=== PATIENT | female | born 1960 | race Caucasian/White ===

== ENCOUNTER → 2016-03-18 | Outpatient (CLI) | payer OTHER ==
[~2016-03-18] MED LIST: ASPEC81 PO; FLEXAMIN PO; GABA-113 PO; IBUP600T44 PO; KETO10TA PO; MULT-506 PO; NAPR1TAB9 PO; PHYTOESTROGEN PO; T4/T3 PO; TRAM-10 PO; [UNRECOGNIZED DRUG - MIXTURE] PO
[2016-03-18 13:46] LABS: THYROID STIMULATING HORMONE 2.39 uIu/ml (0.300-4.500)
== END | disposition home or self-care (01) ==
LOC: C.LABBC 09:22
DX: E03.9 Hypothyroidism, unspecified (principal)

== ENCOUNTER → 2016-10-25 | Outpatient (CLI) | payer OTHER ==
--- NOTE | 2016-10-26 07:55 | MAMMOGRAPHY REPORT ---
BILATERAL DIGITAL SCREENING MAMMOGRAM TOMOSYNTHESIS WITH CAD: 10/25/2016 CLINICAL HISTORY: Routine screening. Patient has no complaints. TECHNIQUE: Breast tomosynthesis in addition to standard 2D mammography was performed. Current study was also evaluated with a Computer Aided Detection (CAD) system. COMPARISON: Comparison is made to exams dated: 10/06/2015 mammogram, 10/01/2014 mammogram, 09/30/2013 mamm ogram, 09/27/2012 mammogram, and 09/27/2011 mammogram - [facility]. BREAST COMPOSITION: The tissue of both breasts is heterogeneously dense, which may obscure small mas ses. FINDINGS: There are scattered bilateral benign-appearing coarse, round and punctate microcalcificatio ns. No suspicious mass, architectural distortion or cluster of new, suspicious microcalcifications i s seen. IMPRESSION: ACR BI-RADS CATEGORY 1: NEGATIVE There is no mammographic evidence of malignancy. A 1 year screening mammogram is recommended. The pa tient will receive written notification of the results. Approximately 10% of breast cancers are not detected with mammography. A negative mammographic report should not delay biopsy if a clinically suggestive mass is present. Marilynn Lopez M.D. ay/:10/25/2016 16:58:18 Director Of Quality Control: Candace AYERS(R)(M), [facility] letter sent: Normal 1/2 BI-RADS Code: ACR BI-RADS Category 1: Negative
== END | disposition home or self-care (01) ==
LOC: C.MAMM 14:00
PROVIDERS: ATTEND Nurse Practitioner
DX: Z12.31 Encounter for screening mammogram for malignant neoplasm of breast (principal)

== ENCOUNTER → 2016-11-09 | Outpatient (CLI) | payer OTHER ==
[2016-11-09 13:28] LABS: BASO % 0.5 %; BASO ABS # 0.04 K/uL (0-0.2); COMPLETE YES; EOS % 1.9 %; HEMATOCRIT 41.2 % (37-47); IG% 0.1 %; LYMPH % 38.6 %; MEAN CELL VOLUME 93.4 fL (80-100); MEAN CORPUSCULAR HEMOGLOBIN 29.9 pg (25-34); MEAN PLATELET VOLUME 9.5 fL (7.4-10.4); MONO % 8.2 %; NEUT % 50.7 %; PLATELET COUNT 323 K/uL (130-400); RED BLOOD COUNT 4.41 M/uL (4.2-5.4); WHITE BLOOD COUNT 8.04 K/uL (4.8-10.8)
[2016-11-09 13:50] LABS: BLOOD UREA NITROGEN 18 mg/dl (7-18); BUN/CREATININE RATIO 20.9 (10-20); CALCIUM 9.2 mg/dl (8.5-10.1); CARBON DIOXIDE 30 mmol/L (21-32); CHLORIDE 105 mmol/L (98-107); CREATININE 0.85 mg/dl (0.60-1.20); GLUCOSE 94 mg/dl (70-99); POTASSIUM 4.3 mmol/L (3.5-5.1); SODIUM 139 mmol/L (136-145)
== END | disposition home or self-care (01) ==
LOC: C.LABBC 09:31
PROVIDERS: ATTEND Orthopaedic Surgery
DX: M25.512 Pain in left shoulder (principal)

== ENCOUNTER → 2016-11-17 | Day surgery (SDC) | payer OTHER ==
[2016-11-14 11:43] VITALS: Ht 158.8 cm; Wt 72.7 kg
[~2016-11-17] VITALS: Ht 158.8 cm; Wt 72.7 kg
[~2016-11-17] MED LIST changes: +ATROPINE SULFATE 0.1 MG/ML 5ML SYR IV PRN; +BUPIVACAINE/EPINEPHRINE 0.25% 1:200,000 30 ML VIAL ONE; +DEXAMETHASONE SOD INJ 4 MG/ML VIAL ONE; +EpHEDrine SULFATE INJ 50 MG/ML AMP IV PRN; +EpHEDrine SULFATE INJ 50 MG/ML AMP ONE; +EpINEphrine INJ 1MG/ML AMP 1 MG/ML AMP ONE; +FENTANYL CITRATE INJ 50 MCG/1 ML 2 ML VIAL IV PRN; +FENTANYL CITRATE INJ 50 MCG/1 ML 2 ML VIAL ONE; -FLEXAMIN PO; +LACTATED RINGER'S 1000ML 1,000 ML IV SCH; +LIDOCAINE HCL 2% 2 ML VIAL (20MG/ML) ONE; +MIDAZOLAM HCL 1 MG/ML 2ML VIAL ONE; +ONDANSETRON INJ 2 MG/ML 2 ML VIAL IV PRN; +ONDANSETRON INJ 2 MG/ML 2 ML VIAL ONE; +PROPOFOL IV EMULSION 10 MG/ML 20 ML VIAL IV ONE; +ROPIVACAINE 0.5% 5 MG/ML 30 ML VIAL ONE; +SODIUM CHLORIDE 0.9% 1000ML 1,000 ML IV SCH; +TRAMADOL HCL 50 MG TAB PO PRN; -[UNRECOGNIZED DRUG - MIXTURE] PO
--- NOTE | 2016-11-17 06:51 | History & Physical Bridge - [place] ---
H&P Re-Evaluation Bridge Note: I have examined the patient, reviewed the History & Physical and in the interval since the performance of the History & Physical I have noted the following changes of clinical significance: No changes noted
[2016-11-17] MEDS: CEFAZOLIN 1000MG/55 ML D5W IV SCH ×2 (09:17→09:23)
--- NOTE | 2016-11-17 10:41 | Discharge Instructions-SurgCtr ---
Discharge Instructions Date of Service Nov 17, 2016. Visit Reason for Visit: Left Shoulder Full Thickness Rotator Cuff Tear Discharge Discharge Diagnosis / Problem: SAME ABOVE Discharge Goals Goal(s): Decrease discomfort, Improve function Medications Stopped Medications Name(s): ALEVE STOPPED 1 WEEK AGO Restart Stopped Medication(s): MAY RESTART WHEN FINISHED WITH TORADOL Activity Recommendations Activity Limitations: as noted below Lifting Limitations: until after follow-up appointment Exercise/Sports Limitations: until after follow-up appointment Shower/Bathe: tomorrow Anesthesia . Post Anesthesia Instructions: If you have had General Anesthesia or IV Sedation: * Do not drive today. * Resume driving when surgeon permits. * Do not make important decisions or sign legal documents today. * Call surgeon for: 1. Temperature elevations greater than 101 degrees F. 2. Uncontrollable pain. 3. Excessive bleeding. 4. Persistent nausea and vomiting. 5. Medication intolerance (nausea, vomiting or rash). * For nausea and vomiting use only clear liquids such as: tea, soda, bouillon until nausea subsides, then gradually increase diet as tolerated. * If you have any concerns or questions, call your surgeon's office. If physician is unavailable and it is an emergency, call 911 or go to the nearest emergency room. . Instructions / Follow-Up Instructions / Follow-Up MEDICATIONS: * Resume previous medications unless instructed otherwise by your surgeon. * Always take pain medication on a full stomach or with food to avoid upset stomach. * Do not drink alcohol or drive while taking narcotics. * Ibuprofen or Tylenol may be taken if narcotic not needed. SPECIAL CARE INSTRUCTIONS: __ None _X_ Keep extremity elevated and iced x 48 hours; apply ice 20-30 minutes 8-10 times/day. May remove at night. __ Sling __24 hrs/day __ Remove at night _X_ Shoulder Immobilizer (MAY REMOVE AFTER 48 HOURS ONLY TO SHOWER AND FOR THERAPY) _X_ 24 hrs/day __ Remove at night _X_ Dressing __ Maintain until seen in office, may shower with plastic over site _X_ Remove dressings in 24-48 hours and then may shower _X_ Cover incisions with band-aids after showering __ Do not remove steri-strips Call physician if chills or temperature rises above 102 degrees or pain unrelieved by prescribed pain medications at . . Diet Recommendations Home Diet: no limitations Fluid Restriction: None Procedures Procedures Performed: Left Shoulder Arthroscopy, Medium Rotator Cuff Repair, Acromioplasty, Biceps Tenodesis Pending Studies Studies pending at discharge: no Work Instructions Return To Work: after follow-up Lifting Limitations: NO LIFTING WITH LEFT ARM Medical Emergencies . Who to Call and When: Medical Emergencies: If at any time you feel your situation is an emergency, please call 911 immediately. . Non-Emergent Contact Non-Emergency issues call your: Primary Care Provider Call Non-Emergent contact if: you have a fever, temperature is above 101.5 . . "Provider Documentation" section prepared by Oliverio Maldonado. .
--- NOTE | 2016-11-17 10:46 | [facility] Post Operative Brief Note ---
Immediate Operative Summary Operative Date Nov 17, 2016. Pre-Operative Diagnosis Left Shoulder Full Thickness Rotator Cuff Tear Post-Operative Diagnosis Same Procedure(s) Performed Left Shoulder Arthroscopy, Medium Rotator Cuff Repair, Acromioplasty, Biceps Tenodesis Surgeon Dr. Mendez [employer] Specialist Surgeon(s) Deepak Maldonado PA-C Estimated Blood Loss 5ml Findings as above Specimens None Complication(s) None Disposition Recovery Room / PACU
--- NOTE | 2016-11-17 11:07 | OPERATIVE REPORT ---
DATE OF OPERATION: 11/17/2016 PREOPERATIVE DIAGNOSIS: Severe external impingement, medium sized rotator cuff tear of the left shoulder. POSTOPERATIVE DIAGNOSIS: Same. PROCEDURE: Left shoulder diagnostic arthroscopy with limited debridement, acromioplasty, medium-sized rotator cuff repair and arthroscopic biceps tenodesis. SURGEON: Dr. Elio Mendez. MEDICAL TECHNOLOGIST CHIEF: Joey Maldonado PA-C, whose assistance was necessary for positioning the arm and helping with instrumentation. ANESTHESIA: General with a left interscalene nerve block. COMPLICATIONS: None. CONDITION: Stable to PACU. INDICATIONS: Kina is a pleasant 56-year-old female who had been complaining of chronic left shoulder pain. MRI and clinical examination were diagnostic for severe external impingement with medium-sized rotator cuff tear. After failing conservative treatment, she elected to undergo arthroscopy. DESCRIPTION OF PROCEDURE: On 11/17/2016, she arrived at [facility] for the above procedure. She was seen in the preoperative holding area and the operative extremity was identified and signed. She was given a preoperative antibiotic and a left interscalene nerve block. She was taken back to the operating room, laid on the table in supine position and put under general anesthesia. She was then put into the beachchair position. The left shoulder was prepped and draped in sterile fashion. Time-out was done and the patient and operative extremity was properly identified. A scope was introduced in the posterior portal. Diagnostic arthroscopy showed no cartilage damage to the humeral head or the glenoid. There was some fraying of the anterior labrum. The biceps tendon showed a little bit of fraying on the anterior aspect. There was a tear involving the entire supraspinatus which went into the biceps ham mechanism. The infraspinatus, teres minor and subscapularis were checked and intact. An anterior portal was made. A shaver was used to do a limited debridement of the intraarticular structures and the biceps tendon was arthroscopically tenotomized. The scope was then put into the subacromial space. A lateral portal was made. A shaver was used to do a complete subacromial and subdeltoid bursectomy. An ablator was used to tease the coracoacromial ligament off the undersurface of the acromion and a 5-0 juice was used to complete an acromioplasty of a large Bigliani type 3 acromion. A shaver was used to remove any excess debris and attention was turned to the rotator cuff. An additional anterolateral portal was made and Luana cannulas were placed in each of the lateral portals. The greater tuberosity was prepared with a ring curette and a microfracture. The rotator cuff was then fixed with an Arthrex SpeedBridge configuration using 4.5 mm BioComposite SwiveLock suture anchors loaded with fiber tapes. This gave good nice knotless SpeedBridge repair. Multiple pictures were taken. To note, the biceps tendon was tagged with an Arthrex FiberLink suture and incorporated into the anterior medial anchor. This completed an arthroscopic biceps tenodesis. Multiple pictures were taken. The scope was placed back into the glenohumeral joint. The biceps tendon was resected and debrided back to stable margins. The articular side of the rotator cuff had been restored and pictures were taken. Arthroscopic instruments were removed from the shoulder. Portal sites were closed with 3-0 nylon. She was then placed in a soft dressing and a left arm abduction sling. She was then extubated, transferred to a litter and taken to the postanesthesia care unit in stable condition. She tolerated the procedure well. I attest to the content of the Intraoperative Record and any orders documented therein. Any exception s are noted below.
[2016-11-17 11:41] VITALS: BP 133/83; PULSE 73; TEMP 36.6; O2SAT 97
--- NOTE | 2016-11-17 12:01 | Anesthesiology Progress Note ---
Anesthesia Post Op Note Date & Time Nov 17, 2016 at 12:00 Vital Signs Pain Intensity: 0 Vital Signs Past 12 Hours Date Time Temp Pulse Resp B/P (MAP) Pulse Ox O2 Delivery O2 Flow Rate FiO2 11/17/16 11:41 36.6 73 133/83 (100) 97 Room Air 11/17/16 11:15 70 18 100 11/17/16 11:15 70 18 11/17/16 11:13 36.7 75 20 157/83 100 Room Air 11/17/16 11:11 157/83 11/17/16 11:10 70 19 11/17/16 11:10 70 19 100 11/17/16 11:06 155/79 11/17/16 11:05 73 27 11/17/16 11:05 74 27 100 11/17/16 11:03 163/81 11/17/16 11:01 151/102 11/17/16 11:00 70 16 11/17/16 11:00 71 16 100 11/17/16 10:57 156/63 11/17/16 10:55 70 19 11/17/16 10:55 71 19 100 11/17/16 10:51 174/78 11/17/16 10:50 71 18 100 11/17/16 10:50 72 18 11/17/16 10:49 73 17 100 11/17/16 10:49 71 17 11/17/16 10:46 175/89 11/17/16 10:44 75 15 11/17/16 10:44 76 15 100 11/17/16 10:41 162/90 11/17/16 10:40 173/86 11/17/16 10:39 36.1 79 16 173/86 97 Diffusion Mask 6 11/17/16 10:39 80 97 11/17/16 10:39 80 11/17/16 09:22 154/94 11/17/16 09:19 74 11/17/16 09:19 74 29 99 11/17/16 09:18 73 11/17/16 09:18 73 20 100 11/17/16 09:17 75 24 11/17/16 09:17 84 11/17/16 09:16 116/90 11/17/16 09:13 69 21 11/17/16 09:12 67 11/17/16 09:12 67 21 100 9/21/17 09:11 129/74 9/21/17 09:08 67 9/21/17 09:08 67 16 100 9/21/17 09:07 70 9/21/17 09:07 70 24 100 9/21/17 09:06 132/83 921/17 09:03 63 9/21/17 09:03 64 16 100 9/21/17 09:02 64 921/17 09:02 64 15 100 921/17 09:01 62 921/17 09:01 63 14 131/77 100 9/21/17 08:56 64 9/21/17 08:56 65 15 137/82 100 921/17 08:51 63 /21/17 08:51 63 13 126/72 100 921/17 08:50 63 14 100 921/17 08:50 64 /21/17 08:49 63 /21/17 08:49 63 15 100 11/17/17 08:46 128/76 11/17/17 08:44 64 11/17/17 08:44 64 25 100 9/21/17 08:43 64 19 100 9/17 08:43 67 /21/17 08:41 130/78 11/17/17 08:38 63 //17 08:38 63 13 100 11/17/17 08:36 129/74 11/17/17 08:33 66 26 100 21/17 08:33 68 /21/17 08:32 68 21 100 11/17/17 08:32 67 11/17/17 08:31 117/73 9/17 08:30 68 25 100 9/21/17 08:30 68 9/21/17 08:29 67 9/21/17 08:29 66 22 100 9/21/17 08:28 67 9/21/17 08:28 68 44 100 11/17/17 08:26 127/83 11/17/17 08:23 71 28 97 /21/17 08:23 73 21/17 08:21 117/86 921/17 08:18 69 24 99 21/17 08:18 69 21/17 08:17 69 9/17 08:17 69 26 100 9/17 08:16 128/86 11/17/16 08:12 70 22 99 11/17/16 08:12 69 11/17/16 08:11 112/73 11/17/16 08:08 71 11/17/16 08:08 71 17 99 11/17/16 08:07 71 11/17/16 08:07 71 31 100 11/17/16 08:07 71 31 100 11/17/16 08:07 71 11/17/16 08:06 130/81 11/17/16 08:04 65 11/17/16 08:04 65 6 100 11/17/16 08:03 128/80 11/17/16 08:02 73 31 100 11/17/16 08:02 72 11/17/16 08:01 67 47 100 11/17/16 08:01 66 11/17/16 07:56 67 0 11/17/16 07:51 65 0 11/17/16 07:46 66 0 11/17/16 07:41 68 0 11/17/16 07:36 77 0 11/17/16 07:31 68 0 11/17/16 07:26 66 0 11/17/16 07:21 66 0 11/17/16 07:16 69 0 11/17/16 07:11 68 0 11/17/16 07:06 66 0 11/17/16 06:36 36.8 69 22 127/88 (101) 99 Room Air Notes Mental Status: alert / awake / arousable, participated in evaluation Pt Amnestic to Procedure: Yes Nausea / Vomiting: adequately controlled Pain: adequately controlled Airway Patency, RR, SpO2: stable & adequate BP & HR: stable & adequate Hydration State: stable & adequate Anesthetic Complications: no major complications apparent
== END | disposition home or self-care (01) ==
LOC: X.SURG 06:23
PROVIDERS: ATTEND Orthopaedic Surgery
DX: M75.42 Impingement syndrome of left shoulder (principal); M75.112 Incomplete rotator cuff tear or rupture of left shoulder, not specified as traumatic; E03.9 Hypothyroidism, unspecified; Z79.82 Long term (current) use of aspirin; Z79.899 Other long term (current) drug therapy